=== PATIENT | male | born 1940 | race Caucasian/White ===

== ENCOUNTER 2018-02-09 07:31 | Day surgery (SDC) | payer MEDICARE, MEDICAID ==
[2018-02-09 08:16] LABS: BASO # 0.1 K/uL (0.0-0.2); BASO % 0.9 % (0.0-2.0); EOS # 0.1 K/uL (0.0-0.7); EOS % 1.5 % (0.0-4.0); HEMOGLOBIN 14.5 g/dL (12.0-18.0); LYMPH # 1.2 K/uL (1.0-4.3); LYMPH % 19.2 % (20.0-40.0); MEAN CELL VOLUME 79.6 fL (80.0-94.0); MEAN CORPUSCULAR HGB CONC 32.7 g/dL (33.0-37.0); MEAN PLATELET VOLUME 7.8 fL (7.2-11.7); MONO # 0.5 K/uL (0.0-0.8); MONO % 8.7 % (0.0-10.0); NEUT # 4.2 K/uL (1.8-7.0); NEUT % 69.7 % (50.0-75.0); NRBC % 0.1 % (0.0-2.0); RBC 5.57 Mil/uL (4.40-5.90); RED CELL DISTRIBUTION WIDTH 14.2 % (11.5-14.5); WHITE BLOOD COUNT 6.1 K/uL (4.8-10.8)
[2018-02-09 08:23] LABS: INR 1.1; PROTHROMBIN TIME 12.1 SECONDS (9.7-12.2)
[2018-02-09 08:26] LABS: BLOOD UREA NITROGEN 13 mg/dL (9-20); CALCIUM 8.3 mg/dl (8.6-10.4); GFR NON-AFRICAN AMERICAN > 60
[2018-02-09 08:40] VITALS: O2SAT 100
[2018-02-09] MEDS ORDERED: Propofol 10 mg/ml Inj (20 ML) ONE (11:07)
[2018-02-09] MEDS ORDERED: Lactated Ringer's 500 ML IV ONE ×2 (11:09)
[2018-02-09] MEDS ORDERED: Lactated Ringer's 500 ML IV SCH (11:15)
[2018-02-09 11:53] VITALS: TEMP 97.1
[2018-02-09 12:57] VITALS: BP 138/70; PULSE 66; RESP 13
--- NOTE | 2018-02-10 14:40 | CARD ---
APPROVED REPORT Date of service: 02/09/2018 EKG Measurement Heart [id number] <Conclusion> Sinus tachycardia with 1st degree AV block Right bundle branch block Abnormal ECG
== END 2018-02-09 12:49 | disposition home or self-care (01) ==
LOC: C.ENDO 07:31
PROVIDERS: ATTEND Internal Medicine Gastroenterology
DX: D12.3 Benign neoplasm of transverse colon (principal); Z86.010 Personal history of colon polyps; D12.5 Benign neoplasm of sigmoid colon; K62.3 Rectal prolapse; K64.1 Second degree hemorrhoids
CPT/HCPCS: 36415; 45385; 80048; 82948; 85025; 85610; 85730; 88305; 93005; J2704; J7120